=== PATIENT | female | born 1990 | race Caucasian/White ===

== ENCOUNTER 2020-03-08 08:23 | Emergency (ER) | payer SELFPAY ==
[~2020-03-08] VITALS: Ht 154.9 cm; Wt 70.0 kg
--- NOTE | 2020-03-08 08:58 | PHYS DOC ---
General Adult EDM: Chief Complaint: ABDOMINAL PAIN HPI: HPI: 30 yo (4 SAB), LMP 2 days ago, no other pmh, presents to the ed with c/o right lower quadrant sharp pressure abdominal pain that radiates to her left lower quadrant for the past 2 days, not worsened with food. Last bowel movement was 2 days ago, normal brown color. Had a negative STD check in September. Smokes tobacco daily. History of 3 unprotected sexual partners in the past year. Surgical history of D&C secondary to spontaneous and tonsillectomy. ROS: Denies associated fever, chills, cough, dyspnea, sore throat, chest pain, n/v/d/c, hemoptysis, melena, hematochezia, vaginal bleeding, abnormal vaginal discharge or odor, rash, leg swelling, flank pain, dysuria, hematuria, dyspareunia, hematemesis, headache, neck stiffness or focal neuro deficits. Heart Score: Risk Factors: Risk Factors: DM, Current or recent (<one month) smoker, HTN, HLP, family history of CAD, obesity. Risk Scores: Score 0 - 3: 2.5% MACE over next 6 weeks - Discharge Home Score 4 - 6: 20.3% MACE over next 6 weeks - Admit for Clinical Observation Score 7 - 10: 72.7% MACE over next 6 weeks - Early Invasive Strategies Physical Exam: PE: Constitutional: no acute distress, non-toxic appearance, unkept appearance HENT: Normocephalic, atraumatic, Eyes: EOMI, conjunctiva normal, no discharge. [] Neck: Normal range of motion, no tenderness, supple, no stridor. [] Cardiovascular:Heart rate regular rhythm, no murmur [] Lungs & Thorax: Bilateral breath sounds clear to auscultation [] Abdomen: Bowel sounds normal, diffuse ttp-jumps with all 4 quadrants, no masses, no pulsatile masses. [] Skin: Warm, dry, no erythema, no rash. [] Back: No tenderness, no CVA tenderness. [] Extremities: No tenderness, no cyanosis, no clubbing, ROM intact, no edema. [] Neurologic: Alert and oriented X 3, normal motor function, normal sensory function, no focal deficits noted. [] Psychologic: Affect normal, judgement normal, mood normal. [] Pelvic: Chaperoned by RN, mild folliculitis over right perineal region, no cellulitis, otherwise external genitalia unremarkable, mild vaginal bleeding, no cmt/adnexal ttp-no chandelier sign, cervical os closed, EKG: EKG: [] Radiology/Procedures: Radiology/Procedures: IMAGING REPORT Signed PATIENT: TRISH MCNEIL ACCOUNT: [id number] : 1990 LOCATION: ER AGE: 30 SEX: F EXAM STATUS: REG ER ORD. PHYSICIAN: ISABELLA FITCH DO REASON: diffuse abd pain PROCEDURE: CT ABD PELV W/ IV CONTRST ONLY CT ABD PELV W/ IV CONTRST ONLY History: diffuse abd pain Comparison: None. Technique: After administration of intravenous contrast, helical CT of the abdomen and pelvis was performed from the lung bases through the ischial tuberosities. Coronal and sagittal reconstructions were obtained. 75 mL of Omnipaque 300 were used. One or more of the following dose reduction techniques were utilized: Automated exposure control (AEC), Adjustment of mA and/or kV according to patient size, Use of iterative reconstruction technique such as ASiR, CT scan done according to ALARA and image gently/image wisely Abdomen Findings: Bibasilar dependent and subsegmental atelectasis. Focal hepatic fatty infiltration along the falciform ligament and gallbladder fossa. Gallbladder, pancreas, spleen, and bilateral adrenal glands are normal. Symmetric renal enhancement. There is no focal renal mass. There is no hydronephrosis. The visualized loops of small bowel are normal. The visualized loops of large bowel are normal. There is no evidence of bowel obstruction. Appendix is normal. There is no free fluid. There is no mesenteric or retroperitoneal adenopathy. The abdominal aorta is normal in caliber. Pelvis Findings: Urinary bladder is normal. Uterus is present. No pelvic free fluid. There is no pelvic or inguinal adenopathy. There is no acute bony abnormality. IMPRESSION: No acute findings. Electronically signed by: Jerrell Laguna MD (03/08/2020 11:43 AM) [id number] IMAGING REPORT Signed PATIENT: TRISH MCNEIL ACCOUNT: [id number] : 1990 LOCATION: ER AGE: 30 SEX: F EXAM STATUS: REG ER ORD. PHYSICIAN: ISABELLA FITCH DO REASON: pelvic pain r/o abscess vs torsion PROCEDURE: PELVIS COMPLETE Examination: Ultrasound pelvis HISTORY: History of pelvic pain COMPARISON: None available FINDINGS: The uterus measures 8.4 x 5.6 x 3.5 cm. Endometrium measures 2 mm in thickness. Right ovary measures 3.2 x 2.0 x 1.7 cm . The left ovary 2.6 x 1.8 x 1.4 cm. Blood flow identified in the right and left ovaries. IMPRESSION: Unremarkable visualized exam. Electronically signed by: Edmar Gaitan MD (03/08/2020 1:56 PM) [id number] DICTATED and SIGNED BY: EDMAR GAITAN MD DATE: 03/08/20 1356 Course & Med Decision Making: Course & Med Decision Making Pertinent Labs and Imaging studies reviewed. (See chart for details) Concern for lower abdominal pain, UA consistent with urinary tract infection. CT a/p contrast shows no acute process, normal-appearing appendix. Patient was treated for chlamydia and gonorrhea given history of unprotected sexual intercourse, discharge not consistent with yeast on physical exam. Will refer to local health department for blood-borne testing especially transmitted diseases. Patient in no distress on initial exam. When re-evaluated pt very upset/crying, HR jumps from low 100s to 130s. Thus TVUS ordered-no abscess or torsion (consistent with pts' pelvic exam). Will treat infection with Macrobid and Azo. Drug screen positive for meth/amps - pt with no chest pain. Pt states she last used meth 1 day ago and does not believe she it withdrawing. Strict ED return precautions given for worsening pain, flank pain, flulike symptoms, fever, nausea or vomiting. Encouraged urgent outpatient follow-up with PMD. L patricia-threatening processes were considered but are low suspicion at this time, given history and physical exam. Pt was educated on all prescription medications and adverse effects. All patient's questions were answered and pt was stable at time of discharge. Differential includes aortic dissection, aortic aneurysm, acute coronary syndrome, surgical abdomen (appendicitis, cholecystitis, ischemic bowel, strangulated hernia, etc), bowel obstruction or volvulus, bladder outlet obstruction, gastrointestinal bleeding, inflammatory bowel disease, peptic ulcer disease, sepsis, diverticular disease, ureterolithiasis, nephrolithiasis, ovarian torsion, ectopic . I spoken with the patient and her caregivers. I explained the patient's condition, diagnoses and treatment plan based on the information available to me at this time. I have answered the patient and her caregiver's questions and addressed any concerns. The patient and her caregivers have a good understanding of patient's diagnosis, condition and treatment plan as can be expected at this point. Vital signs have been stable. Patient's condition is stable and appropriate for discharge from the emergency department. Patient will pursue further outpatient evaluation with primary care physician or other designated or consulting physician as outlined in the discharge instructions. The patient and/or caregivers are agreeable to this plan of care and follow-up instructions have been explained in detail. The patient and/or caregivers have received these instructions in written form and have expressed an understanding of the discharge instructions. The patient and/or caregivers are aware that any significant change of condition or worsening of symptoms should prompt immediate return to this or the closest emergency department or call to 911. Oren Disclaimer: Oren Disclaimer: This electronic medical record was generated, in whole or in part, using a voice recognition dictation system. Departure Departure Impression: Primary Impression: UTI (urinary tract infection) Additional Impression: Lower abdominal pain Disposition: HOME, SELF-CARE Condition: STABLE Referrals: NO PCP (PCP) Patient Instructions: Dysuria Scripts Phenazopyridine Hcl (PHENAZOPYRIDINE HCL) 200 Mg Tablet 1 TAB PO TID for urinary discomfort for 2 Days, #6 TAB 0 Refills after food Prov: ISABELLA FITCH DO 03/08/20 Nitrofurantoin Monohyd/M-Cryst (MACROBID 100 MG CAPSULE) 100 Mg Capsule 1 CAP PO BID for 7 Days, #14 CAP 0 Refills Prov: ISABELLA FITCH DO 03/08/20 Justicifation of Admission Dx: Justifications for Admission: Justification of Admission Dx: N/A ISABELLA FITCH DO Mar 08, 2020 08:58
[2020-03-08] MEDS ORDERED: IV NORMAL SALINE 1000ML BAG 1,000 ML IV SCH (09:21)
[2020-03-08] MEDS ORDERED: AZITHROMYCIN 250 MG TABLET. PO ONE (09:30)
[2020-03-08] MEDS ORDERED: fentaNYL PF VIAL 100 MCG/2 ML VIAL IVP ONE (09:30)
[2020-03-08] MEDS ORDERED: cefTRIAXone IM 250 MG VIAL IM ONE (09:30)
[2020-03-08 09:50] LABS: BILIRUBIN,URINE NEGATIVE (NEG); CLARITY,URINE CLOUDY; COLOR,URINE YELLOW; NITRITE,URINE POSITIVE (NEG); PH,URINE 7.5 (<5.0-8.0); PROTEIN,URINE NEGATIVE (NEG-TRACE)
[2020-03-08] MEDS ORDERED: cefTRIAXone IV Push 1 GM VIAL. IVP ONE ×2 (09:55→10:00)
[2020-03-08 10:09] LABS: BASO # 0.2 x10^3/uL (0.0-0.2); BASO % 1 % (0-3); EOS % 0 % (0-3); HEMOGLOBIN 13.6 g/dL (12.0-15.5); LYMPH # 0.7 x10^3/uL (1.0-4.8); LYMPH % 4 % (24-48); MEAN CORPUSCULAR HEMOGLOBIN 32 pg (25-35); MEAN CORPUSCULAR HGB CONC 33 g/dL (31-37); MEAN CORPUSCULAR VOLUME 96 fL (79-100); MONO # 0.6 x10^3/uL (0.0-1.1); MONO % 3 % (0-9); NEUT # 16.4 x10^3/uL (1.8-7.7); NEUT % 91 % (31-73); PLATELET COUNT 307 x10^3/uL (140-400); RED BLOOD COUNT 4.29 x10^6/uL (3.50-5.40); RED CELL DISTRIBUTION WIDTH 12.9 % (11.5-14.5); WHITE BLOOD COUNT 17.9 x10^3/uL (4.0-11.0)
[2020-03-08 10:15] LABS: BACTERIA,URINE MANY /HPF (0-FEW); SQUAMOUS EPITHELIAL CELL,UR MOD /LPF
[2020-03-08 10:21] LABS: CALCIUM 9.1 mg/dL (8.5-10.1); GFR 64.7; POTASSIUM 3.7 mmol/L (3.5-5.1)
[2020-03-08 10:25] LABS: ALBUMIN 3.3 g/dL (3.4-5.0); DIRECT BILIRUBIN 0.4 mg/dL (0.0-0.2); TOTAL BILIRUBIN 1.8 mg/dL (0.2-1.0); TOTAL PROTEIN 7.6 g/dL (6.4-8.2)
[2020-03-08 10:57] LABS: % BANDS 7 % (0-9); % BASOS 1 % (0-3); % LYMPHS 2 % (24-48); % MONOS 3 % (0-10); % SEGS 87 % (35-66)
[2020-03-08] MEDS ORDERED: IOHEXOL 300 MG/ML 100ML VIAL. IV ONE (11:00)
[2020-03-08 11:37] LABS: BARBITURATES NEG (NEG); BENZODIAZEPINES NEG (NEG); CANNABINOIDS NEG (NEG); COCAINE NEG (NEG); METHADONE NEG (NEG); OPIATES NEG (NEG); PHENCYCLIDINE NEG (NEG)
[2020-03-08 11:39] LABS: AMPHETAMINE/METHAMPHETAMINE POS (NEG)
--- NOTE | 2020-03-08 11:46 | RAD ---
CT ABD PELV W/ IV CONTRST ONLY History: diffuse abd pain Comparison: None. Technique: After administration of intravenous contrast, helical CT of the abdomen and pelvis was performed from the lung bases through the ischial tuberosities. Coronal and sagittal reconstructions were obtained. 75 mL of Omnipaque 300 were used. One or more of the following dose reduction techniques were utilized: Automated exposure control (AEC), Adjustment of mA and/or kV according to patient size, Use of iterative reconstruction technique such as ASiR, CT scan done according to ALARA and image gently/image wisely Abdomen Findings: Bibasilar dependent and subsegmental atelectasis. Focal hepatic fatty infiltration along the falciform ligament and gallbladder fossa. Gallbladder, pancreas, spleen, and bilateral adrenal glands are normal. Symmetric renal enhancement. There is no focal renal mass. There is no hydronephrosis. The visualized loops of small bowel are normal. The visualized loops of large bowel are normal. There is no evidence of bowel obstruction. Appendix is normal. There is no free fluid. There is no mesenteric or retroperitoneal adenopathy. The abdominal aorta is normal in caliber. Pelvis Findings: Urinary bladder is normal. Uterus is present. No pelvic free fluid. There is no pelvic or inguinal adenopathy. There is no acute bony abnormality. IMPRESSION: No acute findings. Electronically signed by: Jerrell Laguna MD (03/08/2020 11:43 AM) [id number]
[2020-03-08 12:15] LABS: PLT ESTIMATE ADEQUATE (ADEQUATE)
[2020-03-08] MEDS ORDERED: NITR100C62 PO (12:15)
[2020-03-08] MEDS ORDERED: PHEN-444 PO (12:15)
[2020-03-08] MEDS ORDERED: HYDROmorphone 2 MG/ML VIAL IVP ONE (12:30)
[2020-03-08] MEDS ORDERED: IV NORMAL SALINE 1000ML BAG 1,000 ML IV ONE ×2 (12:30)
--- NOTE | 2020-03-08 13:59 | RAD ---
Examination: Ultrasound pelvis HISTORY: History of pelvic pain COMPARISON: None available FINDINGS: The uterus measures 8.4 x 5.6 x 3.5 cm. Endometrium measures 2 mm in thickness. Right ovary measures 3.2 x 2.0 x 1.7 cm . The left ovary 2.6 x 1.8 x 1.4 cm. Blood flow identified in the right and left ovaries. IMPRESSION: Unremarkable visualized exam. Electronically signed by: Edmar Gaitan MD (03/08/2020 1:56 PM) [id number]
[2020-03-08] MEDS ORDERED: PHENAZOPYRIDINE 200 MG TABLET. PO ONE (15:00)
[2020-03-08 15:08] VITALS: BP 110/65
[2020-03-10 01:08] LABS: GC PROBE Positive (Negative)
== END 2020-03-08 15:08 | disposition home or self-care (01) ==
LOC: ER 08:23
DX: N39.0 Urinary tract infection, site not specified (principal); R10.31 Right lower quadrant pain
CPT/HCPCS: 36415; 74177; 76856; 80048; 80076; 80307; 81001; 81025; 82550; 83605; 83690; 84484; 85007; 85025; 87040; 87086; 87491; 87591; 96361; 96374; 96375; 99285; J0696; J1170; J3010; J7030; Q0111; Q9967; 87077; 87186